=== PATIENT | male | born 1970 | race Two or more races ===

== ENCOUNTER → 2020-10-09 | Outpatient (CLI) | payer SELFPAY | LOC: M LABSMTC 08:19 | PROVIDERS: ATTEND Pediatrics | DX: Z11.52 Encounter for screening for COVID-19 (principal) ==

== ENCOUNTER → 2021-10-03 | Outpatient (CLI) | payer BC | LOC: M PLAIMG 09:35 | PROVIDERS: ATTEND Physician Assistant | DX: M54.16 Radiculopathy, lumbar region (principal) ==

== ENCOUNTER → 2022-01-03 | Outpatient (CLI) | payer BC | LOC: M SOG 09:45 | PROVIDERS: ATTEND Orthopaedic Surgery Hand Surgery | DX: M25.531 Pain in right wrist (principal); M25.532 Pain in left wrist ==

== ENCOUNTER → 2022-03-11 | Outpatient (CLI) | payer BC ==
[2022-03-11 11:18] LABS: HEMATOCRIT 46.3 % (42.0-52.0); HEMOGLOBIN 15.1 g/dl (13.5-17.5); MEAN CORPUSCULAR HEMOGLOBIN 27.8 pg (27.0-33.0); MEAN CORPUSCULAR HGB CONC 32.6 g/dl (32.0-36.5); MEAN CORPUSCULAR VOLUME 85.3 fl (80.0-96.0); PLATELET COUNT, AUTOMATED 206 10^3/uL (150-450); RED BLOOD COUNT 5.43 10^6/uL (4.30-6.10); WHITE BLOOD COUNT 4.5 10^3/uL (4.0-10.0)
[2022-03-11 11:57] LABS: ALT/SGPT 25 U/L (12-78); BILIRUBIN,TOTAL 0.8 MG/DL (0.2-1.0); BLOOD UREA NITROGEN 13 MG/DL (7-18); CALCIUM LEVEL 9.3 MG/DL (8.5-10.1); CARBON DIOXIDE LEVEL 27 MEQ/L (21-32); CHLORIDE LEVEL 108 MEQ/L (98-107); CHOLESTEROL LEVEL 255 MG/DL (<200); CHOLESTEROL RISK RATIO 5.204 (<5); CREATININE FOR GFR 0.77 MG/DL (0.70-1.30); FREE T4 0.99 NG/DL (0.76-1.46); GLOMERULAR FILTRATION RATE > 60.0 (>56); GLUCOSE, FASTING 86 MG/DL (70-100); HDL CHOLESTEROL 49 MG/DL (>40); LDL CHOLESTEROL 169 MG/DL (<100); NON-HDL-C 206 MG/DL; POTASSIUM SERUM 4.2 MEQ/L (3.5-5.1); SODIUM LEVEL 139 MEQ/L (136-145); THYROID STIMULATING HORMONE 0.925 uIU/ML (0.358-3.740); TOTAL PROTEIN 7.1 GM/DL (6.4-8.2); TRIGLYCERIDES LEVEL 187 MG/DL (<150)
[2022-03-13 12:02] LABS: TOTAL 25(OH) VITAMIN D 25.6 NG/ML (30.0-100.0)
== END ==
LOC: M LAB 10:39
PROVIDERS: ATTEND Family Medicine
DX: E78.2 Mixed hyperlipidemia (principal); I10 Essential (primary) hypertension; E55.9 Vitamin D deficiency, unspecified; G47.33 Obstructive sleep apnea (adult) (pediatric); Z12.5 Encounter for screening for malignant neoplasm of prostate

== ENCOUNTER → 2022-04-10 | Outpatient (CLI) | payer BC ==
[~2022-04-10] MED LIST: LISI10TA22 PO
== END ==
LOC: M LABSMTC 09:57
PROVIDERS: ATTEND Anesthesiology
DX: Z01.812 Encounter for preprocedural laboratory examination (principal); Z20.822 Contact with and (suspected) exposure to COVID-19

== ENCOUNTER → 2022-06-22 | Outpatient (REF) | payer BC | LOC: M SFHCADAM 12:56 | PROVIDERS: ATTEND Physician Assistant | DX: J11.1 Influenza due to unidentified influenza virus with other respiratory manifestations (principal) ==

== ENCOUNTER → 2022-12-09 | Outpatient (CLI) | payer BC ==
[2022-12-09 13:04] LABS: ALBUMIN 4.1 G/DL (3.2-5.2); ALKALINE PHOSPHATASE 76 U/L (46-116); ALT/SGPT 26 U/L (7.0-40); AST/SGOT 18 U/L (<34); BILIRUBIN,TOTAL 0.7 MG/DL (0.3-1.2); BLOOD UREA NITROGEN 16 MG/DL (9-23); CALCIUM LEVEL 8.8 MG/DL (8.5-10.1); CARBON DIOXIDE LEVEL 27 MMOL/L (20-31); CHLORIDE LEVEL 108 MMOL/L (98-107); CHOLESTEROL LEVEL 190 MG/DL (<200); CHOLESTEROL RISK RATIO 4.07 (<5); CREATININE FOR GFR 0.78 MG/DL (0.70-1.30); GLOMERULAR FILTRATION RATE > 60.0 (>56); GLUCOSE, FASTING 86 MG/DL (60-100); HDL CHOLESTEROL 46.6 MG/DL (>40); LDL CHOLESTEROL 122.2 MG/DL (<100); NON-HDL-C 143.4 MG/DL; POTASSIUM SERUM 4.5 MMOL/L (3.5-5.1); SODIUM LEVEL 140 MMOL/L (136-145); TOTAL PROTEIN 6.7 G/DL (5.7-8.2); TRIGLYCERIDES LEVEL 106 MG/DL (<150)
== END ==
LOC: M LAB 11:16
PROVIDERS: ATTEND Family Medicine
DX: E78.2 Mixed hyperlipidemia (principal)

== ENCOUNTER → 2023-02-20 | Outpatient (CLI) | payer BC | LOC: M ADAMS 10:52 | PROVIDERS: ATTEND Physician Assistant Medical | DX: M79.601 Pain in right arm (principal); M25.711 Osteophyte, right shoulder ==

== ENCOUNTER → 2023-05-28 | Outpatient (CLI) | payer BC | LOC: M RAD 15:18 | PROVIDERS: ATTEND Physician Assistant Surgical | DX: M75.51 Bursitis of right shoulder (principal); M19.011 Primary osteoarthritis, right shoulder ==

== ENCOUNTER → 2023-07-07 | Outpatient (CLI) | payer BC ==
[2023-07-07 08:54] LABS: APPEARANCE, URINE CLEAR (CLEAR); BACTERIA, URINE AUTO NEGATIVE (NEGATIVE); BILIRUBIN, URINE AUTO NEGATIVE (NEGATIVE); BLOOD, URINE BLOOD NEGATIVE (NEGATIVE); COLOR, URINE YELLOW (YELLOW); GLUCOSE, URINE (UA) AUTO NEGATIVE (NEGATIVE); KETONE, URINE AUTO NEGATIVE (NEGATIVE); LEUKOCYTE ESTERASE, URINE AUTO NEGATIVE (NEGATIVE); MUCUS, URINE SMALL (NEGATIVE); NITRITE, URINE AUTO NEGATIVE (NEGATIVE); PROTEIN, URINE AUTO NEGATIVE (NEGATIVE); RBC, URINE AUTO 0 /HPF (0-3); SPECIFIC GRAVITY URINE AUTO 1.014 (1.002-1.035); SQUAMOUS EPITHELIAL CELL UR AU 0 /HPF (0-6); UROBILINOGEN, URINE AUTO 0.2 mg/dL (0.0-2.0); WBC, URINE AUTO 0 /HPF (0-3)
[2023-07-07 09:01] LABS: HEMATOCRIT 45.5 % (42.0-52.0); HEMOGLOBIN 14.9 g/dl (13.5-17.5); MEAN CORPUSCULAR HEMOGLOBIN 27.8 pg (27.0-33.0); MEAN CORPUSCULAR HGB CONC 32.7 g/dl (32.0-36.5); MEAN CORPUSCULAR VOLUME 84.9 fl (80.0-96.0); PLATELET COUNT, AUTOMATED 222 10^3/uL (150-450); RED BLOOD COUNT 5.36 10^6/uL (4.30-6.10)
[2023-07-07 09:24] LABS: ALBUMIN 3.7 G/DL (3.2-5.2); ALKALINE PHOSPHATASE 72 U/L (46-116); ALT/SGPT 27 U/L (7.0-40); AST/SGOT 16 U/L (<34); BILIRUBIN,TOTAL 0.5 MG/DL (0.3-1.2); BLOOD UREA NITROGEN 16 MG/DL (9-23); CALCIUM LEVEL 9.3 MG/DL (8.5-10.1); CARBON DIOXIDE LEVEL 24 MMOL/L (20-31); CHLORIDE LEVEL 109 MMOL/L (98-107); CREATININE FOR GFR 0.58 MG/DL (0.70-1.30); GLOMERULAR FILTRATION RATE > 60.0 (>56); GLUCOSE, FASTING 93 MG/DL (60-100); POTASSIUM SERUM 4.2 MMOL/L (3.5-5.1); SODIUM LEVEL 141 MMOL/L (136-145); TOTAL PROTEIN 6.7 G/DL (5.7-8.2)
== END ==
LOC: M LAB 08:14
PROVIDERS: ATTEND Physician Assistant Surgical
DX: M75.51 Bursitis of right shoulder (principal); M75.101 Unspecified rotator cuff tear or rupture of right shoulder, not specified as traumatic

== ENCOUNTER → 2023-07-07 | Outpatient (CLI) | payer BC ==
[2023-07-07 09:25] LABS: CHOLESTEROL RISK RATIO 5.03 (<5); HDL CHOLESTEROL 40.3 MG/DL (>40); LDL CHOLESTEROL 118.3 MG/DL (<100); NON-HDL-C 162.7 MG/DL; PSA SCREENING 0.27 NG/ML (< 4.00)
== END ==
LOC: M LAB 08:16
PROVIDERS: ATTEND Family Medicine
DX: E78.2 Mixed hyperlipidemia (principal); Z12.5 Encounter for screening for malignant neoplasm of prostate

== ENCOUNTER → 2024-11-29 | Outpatient (CLI) | payer BC ==
[2024-11-29 12:04] LABS: HEMATOCRIT 44.8 % (42.0-52.0); HEMOGLOBIN 14.9 g/dl (13.5-17.5); MEAN CORPUSCULAR HGB CONC 33.3 g/dl (32.0-36.5); MEAN CORPUSCULAR VOLUME 84.1 fl (80.0-96.0); PLATELET COUNT, AUTOMATED 200 10^3/uL (150-450); RED BLOOD COUNT 5.33 10^6/uL (4.30-6.10); WHITE BLOOD COUNT 4.9 10^3/uL (4.0-10.0)
[2024-11-29 12:34] LABS: HEMOGLOBIN A1c 5.3 % (4.0-6.0)
[2024-11-29 12:39] LABS: ALBUMIN 3.8 G/DL (3.2-5.2); ALKALINE PHOSPHATASE 60 U/L (40-129); ALT/SGPT 29 U/L (7.0-40); AST/SGOT 15 U/L (<34); BILIRUBIN,TOTAL 0.6 MG/DL (0.3-1.2); BLOOD UREA NITROGEN 18 MG/DL (9-23); CALCIUM LEVEL 9.1 MG/DL (8.5-10.1); CARBON DIOXIDE LEVEL 24 MMOL/L (20-31); CHLORIDE LEVEL 107 MMOL/L (98-107); CHOLESTEROL LEVEL 232 MG/DL (<200); CHOLESTEROL RISK RATIO 5.37 (<5); GLOMERULAR FILTRATION RATE > 90.0 (>56); GLUCOSE, FASTING 89 MG/DL (60-100); HDL CHOLESTEROL 43.2 MG/DL (>40); LDL CHOLESTEROL 157.2 MG/DL (<100); NON-HDL-C 188.8 MG/DL; SODIUM LEVEL 142 MMOL/L (136-145); TOTAL PROTEIN 6.6 G/DL (5.7-8.2); TRIGLYCERIDES LEVEL 158 MG/DL (<150)
== END ==
LOC: M LAB 11:02
PROVIDERS: ATTEND Family Medicine
DX: I10 Essential (primary) hypertension (principal); G47.33 Obstructive sleep apnea (adult) (pediatric); E78.2 Mixed hyperlipidemia; Z12.5 Encounter for screening for malignant neoplasm of prostate; Z13.1 Encounter for screening for diabetes mellitus
CPT/HCPCS: 36415; 80053; 80061; 83036; 85027; G0103